=== PATIENT | female | born 1960 | race Caucasian/White ===

== ENCOUNTER → 2016-09-27 | Outpatient (CLI) | payer OTHER ==
--- NOTE | 2016-09-27 15:11 | KCIC ---
Examination: MRI of the left knee without contrast HISTORY: History of left knee pain, medial knee pain COMPARISON: None TECHNIQUE: Multiplanar, multisequence MR imaging of the left knee was performed without contrast FINDINGS: The anterior cruciate ligament, posterior cruciate ligament appear intact. There is mild increased signal identified at the junction of the body and anterior horn of the medial meniscus likely tear, best visualized on series 6 image 20 and series 8 image 14. There is mild increased signal identified throughout the medial meniscus likely secondary to degeneration. Lateral meniscus appears intact. The medial collateral ligament is intact. The lateral collateral ligamentous complex including the fibular collateral ligament, biceps femoris tendon, popliteus tendon appear intact. The extensor mechanism is intact. Moderate knee joint effusion. The medial retinaculum, lateral retinaculum appear intact. Small popliteal cyst identified. There is deep fissuring of cartilage identified in the medial patellofemoral compartment. There is deep fissuring of cartilage with near complete cartilage loss in the weightbearing portion of the medial compartment. Moderate joint space loss identified in the medial compartment. Mild joint space loss identified in the lateral compartment. There is moderate degenerative changes identified in the proximal femoral compartment. Small osteophyte formation identified in the medial, lateral, patellofemoral compartments. IMPRESSION: 1. Mild increased signal identified at the junction of the body and anterior horn of the medial meniscus likely tear, best visualized on series 6 image 20 and series 8 image 14. There is mild increased signal identified throughout the medial meniscus likely secondary to degeneration. 2. Moderate tricompartmental degenerative changes, most in the medial compartment. 3. Moderate knee joint effusion with a small popliteal cyst. 4. 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 Electronically signed by: Shayan Boyle MD (09/27/2016 3:08 PM) [email or web address]
== END | disposition home or self-care (01) ==
LOC: KCIC MRI 11:18
PROVIDERS: ATTEND Orthopaedic Surgery
DX: M17.11 Unilateral primary osteoarthritis, right knee (principal); M25.461 Effusion, right knee
CPT/HCPCS: 73721

== ENCOUNTER → 2017-06-14 | Outpatient (CLI) | payer OTHER | END | disposition home or self-care (01) | LOC: KCIC MRI 10:06 | DX: G57.31 Lesion of lateral popliteal nerve, right lower limb (principal); M25.461 Effusion, right knee | CPT/HCPCS: 73718 ==

== ENCOUNTER → 2017-06-21 | Outpatient (CLI) | payer OTHER | END | disposition home or self-care (01) | LOC: US 10:20 | DX: M79.604 Pain in right leg (principal); M79.89 Other specified soft tissue disorders | CPT/HCPCS: 93971 ==

== ENCOUNTER → 2017-12-04 | Outpatient (CLI) | payer OTHER ==
--- NOTE | 2017-12-04 17:07 | KCIC ---
EXAM: MRI LEFT KNEE DATE: 12/04/2017 4:15 PM CLINICAL INDICATION: Left knee pain medially, osteoarthritis. COMPARISON: MRI left knee on 09/27/2016. TECHNIQUE: Multiplanar multisequence MR imaging of the left knee was performed without IV contrast. FINDINGS: There is a small to moderate left knee joint effusion. Small Mtz's cyst. A few thin internal septations are seen. Full-thickness cartilage defect is seen at the medial patellar facet measuring 9 mm in transverse dimension. Mild medial compartment chondral thinning without discrete full-thickness defect. The ACL is intact with mild increased signal consistent with mucoid degeneration. PCL is intact. The medial collateral ligament, fibular collateral ligament, IT band and biceps femoris are intact. The popliteus is normal in signal and morphology, also intact. Menisci: The lateral meniscus is intact. The posterior horn of the medial meniscus is diminutive. In addition there is an oblique increased signal extending to the the inferior articular surface of the posterior horn of the medial meniscus consistent with oblique tear. There is approximately 5 mm extrusion of the body segment. T1 marrow signal is grossly normal. No evidence of fracture or osteonecrosis. Mild cystic changes seen at the attachment of the medial head gastrocnemius. IMPRESSION: 1. Complex tear of the medial meniscus with radial and oblique components with additional extrusion of the body segment. Patellofemoral prominent chondromalacia with tricompartmental osteophytes. 2. Small to moderate left knee joint effusion. Small Mtz's cyst. Electronically signed by: Min Benitez MD (12/04/2017 5:03 PM) [id number]
== END | disposition home or self-care (01) ==
LOC: KCIC MRI 15:50
PROVIDERS: ATTEND Orthopaedic Surgery
DX: S83.242A Other tear of medial meniscus, current injury, left knee, initial encounter (principal); M25.462 Effusion, left knee; M25.762 Osteophyte, left knee; M22.42 Chondromalacia patellae, left knee; M17.11 Unilateral primary osteoarthritis, right knee; X58.XXXA Exposure to other specified factors, initial encounter; Y93.89 Activity, other specified; Y92.89 Other specified places as the place of occurrence of the external cause; Y99.8 Other external cause status
CPT/HCPCS: 73721

== ENCOUNTER → 2017-12-13 | Outpatient (CLI) | payer OTHER ==
--- NOTE | 2017-12-13 14:45 | KCIC ---
Examination: Ultrasound pelvis HISTORY: History of postmenopausal bleeding COMPARISON: None available FINDINGS: The uterus measures 7.7 x 3.8 x 5.5 cm. The endometrial images 7 mm in thickness. The right ovary could not be identified. The left ovary measures 1.6 x 1.4 x 1.2 cm. Blood flow identified in the left ovary. IMPRESSION: 1. The endometrium measures 7 mm in thickness which is slightly thickened for postmenopausal age with history of postmenopausal bleeding. Differential includes endometrial hyperplasia, hormonal or malignancy. 2. The right ovary could not be identified. Electronically signed by: Shayan Boyle MD (12/13/2017 2:42 PM) [id number]
== END | disposition home or self-care (01) ==
LOC: KCIC US 12:41
PROVIDERS: ATTEND Specialist
DX: N85.00 Endometrial hyperplasia, unspecified (principal); Z87.42 Personal history of other diseases of the female genital tract
CPT/HCPCS: 76830; 76856

== ENCOUNTER 2018-01-05 10:16 | Day surgery (SDC) | payer OTHER ==
[~2018-01-05] VITALS: Ht 167.6 cm; Wt 108.9 kg
[~2018-01-05 10:16] MED LIST: ACET325T9 PO; HYDR25TA9 PO; HYDROmorphone 2 MG/ML VIAL IV PRN; IBUP200T44 PO; IV RINGERS,LACTATED 1000ML 1,000 ML IV SCH; LIDOCAINE 1% PF 2 ML VIAL. ID PRN; LISI10TA2 PO; METF500T16 PO; MORPHINE SULFATE 2 MG/ML VIAL. IV PRN; MULT1TAB52 PO; ONDANSETRON PF 4 MG/2 ML VIAL. IV PRN; PROCHLORPERAZINE 10 MG/2 ML VIAL. IV PRN; fentaNYL PF VIAL 100 MCG/2 ML VIAL IV PRN
[2018-01-05] MEDS ORDERED: BUPIVAC MPF-EPI 0.5%-1:200000 30 ML VIAL. ONE (10:31)
[2018-01-05] MEDS ORDERED: DEXAMETHASONE SOD PHOS 20 MG/5 ML VIAL. ONE (11:32)
[2018-01-05] MEDS ORDERED: ONDANSETRON PF 4 MG/2 ML VIAL. ONE (11:32)
[2018-01-05] MEDS ORDERED: PROPOFOL 20 ML IV ONE (11:32)
[2018-01-05] MEDS ORDERED: LIDOCAINE 2% PF Vial for OR 5 ML VIAL. ONE (11:32)
[2018-01-05] MEDS ORDERED: FAMOTIDINE 20 MG/2 ML VIAL ONE (11:32)
[2018-01-05] MEDS ORDERED: fentaNYL PF VIAL 100 MCG/2 ML VIAL ONE (11:33)
[2018-01-05] MEDS ORDERED: MIDAZOLAM HCL/PF 2 MG/2 ML VIAL. ONE (11:33)
[2018-01-05] MEDS ORDERED: ePHEDrine PF IN SALINE 50 MG/5 ML DISP.SYRIN IV ONE (12:07)
[2018-01-05] MEDS ORDERED: SEVOFLURANE 31 TO 60 MINUTES. IH ONE (12:29)
[2018-01-05 13:56] VITALS: BP 120/57
[2018-01-05] MEDS ORDERED: HYDR-2762 PO (14:58)
[2018-01-05] MEDS ORDERED: HYDROcodone/APAP 7.5/325MG 1 TAB TABLET PO ONE (15:00)
[2018-01-05] MEDS ORDERED: HYDROcodone/APAP 7.5/325MG 1 TAB TABLET ONE (15:01)
--- NOTE | 2018-01-05 15:03 | DISCH ---
DISCHARGE INSTRUCTIONS Condition on Discharge Condition on Discharge: Stable Activity After Discharge Activity Instructions for Disc: Activity as tolerated (slow advance to activities as tolerated, symptomatically limited only) Weight Bearing Status after Di: As tolerated Diet after Discharge Diet after Discharge: Regular Wound Incision Care Wound/Incision Care: Ice to area for comfort, Change dressing (remove dressing after 2 days may then shower no soaking until sutures removed) Contacting the DRMelanie after DC Call your doctor for: Concerns you may have Follow-Up Follow up with: Clementine 10 days LARRY CELIS MD Jan 05, 2018 15:03
--- NOTE | 2018-01-05 19:45 | PDOC4 ---
Operative Note Operative Note Date of surgery: 01/05/2018 Preoperative diagnosis: Meniscal tear left knee Postoperative diagnosis: Same with medial meniscus tear and chondral flap tears weightbearing surface of medial and lateral femoral condyles Operative procedure: Left knee arthroscopy partial medial meniscectomy chondroplasty of medial and lateral femoral condyles Surgeon: Clementine Anesthesia: Gen. 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 She said the new symptoms or more limiting to her activities of daily living worse with giving way particularly with twisting pivoting type activities. I gone over with her that while I can address some of the mechanical aspects of meniscus tear I cannot undo any symptoms related to degenerative change and those would have to undergo ongoing symptomatic treatment perhaps with bracing injection or activity modification or other considerations. She acknowledges this and understands risks of possible infection nerve or blood vessel damage medical or other anesthetic complications among others and agrees to proceed with surgical evaluation and treatment. Operative text: Patient was identified procedure verified patient placed in the supine position on the operating table. After adequate amounts of general anesthesia were administered the left lower extremity was prepped and draped in standard sterile fashion with a thigh tourniquet. After timeout was performed patient procedure identified and verified the left lower extremity was exsanguinated tourniquet inflated to 350 mmHg a lateral portal was established a medial portal established using spinal needle localization and the knee joint was systematically examined. She was noted to have it patellofemoral tracking and some grade 2-3 chondromalacia over the patellofemoral joint without requiring any debridement no loose bodies noted in the gutters or suprapatellar pouch she did have a complex tear posterior horn and body area of the medial meniscus which was trimmed back to stable tissue using arthroscopic punch and shaver. She had a full-thickness small defect in the medial tibial plateau cartilage a little less than a centimeter in diameter at the edge of the posterior horn and body junction of the medial meniscus she also had some grade 3 chondromalacia and chondral flap tearing of the medial femoral condyle which was trimmed back to stable tissue as it was not a full-thickness lesion. ACL was probed and found to be intact lateral meniscus was probed and found to be intact but she had significant degradation of the weightbearing surface of lateral femoral condyle with chondral flap tears which were trimmed back to stable tissue with arthroscopic shaver. The knee was toured to ensure no loose bodies were present joint was drained of arthroscopic fluid portals closed with nylon suture portals and fat pad were injected with 20 mL of half percent Marcaine sterile dressings were applied toes were noted be warm pink find deflation of tourniquet patient was returned recovery room in stable condition having tolerated procedure well LARRY CELIS MD Jan 05, 2018 19:45
== END 2018-01-05 15:25 | disposition home or self-care (01) ==
LOC: SURG 10:16
PROVIDERS: ATTEND Orthopaedic Surgery
DX: S83.232A Complex tear of medial meniscus, current injury, left knee, initial encounter (principal); M94.262 Chondromalacia, left knee; X58.XXXA Exposure to other specified factors, initial encounter; Y93.89 Activity, other specified; Y92.89 Other specified places as the place of occurrence of the external cause; Y99.8 Other external cause status; M17.0 Bilateral primary osteoarthritis of knee; E78.00 Pure hypercholesterolemia, unspecified; I10 Essential (primary) hypertension; E66.9 Obesity, unspecified; E11.9 Type 2 diabetes mellitus without complications; Z79.899 Other long term (current) drug therapy; Z79.1 Long term (current) use of non-steroidal anti-inflammatories (NSAID)
CPT/HCPCS: 29881; A7015; C1782; J0690; J1100; J2001; J2250; J2405; J2704; J3010; J3490; J7120